=== PATIENT | male | born 1955 | race Caucasian/White ===

== ENCOUNTER 2017-02-26 08:58 | Emergency (ER) | payer MEDICARE ==
--- NOTE | 2017-02-26 11:18 | RAD ---
INDICATION: Right ankle pain. TECHNIQUE: 3 views of the right ankle were obtained. FINDINGS: The bones are in normal alignment. No fracture is seen. Joint spaces appear maintained. There are prominent vascular calcifications present. IMPRESSION: NO EVIDENCE FOR FRACTURE.
[2017-02-26 11:23] LABS: Albumin 3.6 g/dL (3.2-5.2); BUN/Creatinine Ratio 14.3 (8-20); C Reactive Protein 8.19 mg/L (< 5.00); Calcium 9.1 mg/dL (8.6-10.3); EGFR African American 38.9 (>60); EGFR Non-African American 30.2 (>60); Globulin 4.1 g/dL (2-4); Total Bilirubin 0.3 mg/dL (0.2-1.0); Total Protein 7.7 g/dL (6.4-8.9); Uric Acid 6.3 mg/dL (4.4-7.6)
--- NOTE | 2017-02-26 11:51 | RAD ---
INDICATION: Pain and swelling. Right leg pain COMPARISON: None TECHNIQUE: Duplex interrogation of the Lowerextremity was performed. FINDINGS: Deep veins: The common femoral, great saphenous, profunda femoris, proximal, mid, and distal deep femoral, popliteal, posterior tibial, and peroneal veins are patent. There is normal compressibility, augmentation, and phasic flow. Superficial veins: There are no findings of superficial thrombophlebitis. Popliteal fossa:There is no evidence of a popliteal cyst. Soft tissues:There are no soft tissue abnormalities. IMPRESSION: Normal examination. No evidence of deep venous thrombosis
[2017-02-26 12:10] LABS: Hematocrit 39 % (42-52); Hemoglobin 12.9 g/dl (14.0-18.0); Mean Corpuscular HGB Conc 33 g/dl (31-36); Mean Corpuscular Hemoglobin 34 pg (27-31); Mean Corpuscular Volume 103 fL (80-94); Mean Platelet Volume 9 um3 (7.4-10.4); Red Blood Count 3.81 10^6/ul (4.0-5.4); Red Cell Distribution Width 13 % (10.5-15); White Blood Count 4.1 10^3/ul (3.5-10.8)
[2017-02-26 12:46] LABS: Potassium 5.2 mmol/L (3.5-5.0)
--- NOTE | 2017-02-26 13:46 | ED ---
Jacobo Davis Angela, scribed for Pravin Wallis MD on 02/26/17 at 1046 . Lower Extremity - HPI Summary HPI Summary: This pt is a 61 y/o male, with recent kidney transplant and BK virus, presenting to [facility] c/o RLE pain x2 days. Pt reports that he had a headache 3 days ago, but 2 days ago he developed right thigh pain. He states he took Tylenol with relief. Yesterday, pt notes he had right negron pain, took Tylenol before bed and had some relief but felt throbbing pain. He notes that this morning he woke up with right ankle pain. At its worst pt rates his pain 8/10 in severity. Pt took Tylenol this morning and had relief, currently rates his pain 0/10 in severity. Pt denies chest pain, SOB, fever, chills. PMHx includes gout. reports the pt usually has gout when he is stressed. Last time pt had gout was in August 2014. No PMHx of blood clots. Pt had a recent left kidney transplant 12 weeks ago in [facility]. Pt started IVIG infusions on Feb.16, then had infusions on Sun, Sun. and Sunday of last week, and was supposed to have his 5th one today. He [facility] followed up by Dr. Gonzalez. 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 Used: 0-10 Numeric Timing: Lasting Days - 2 Location: Is Discrete @ - RLE Associated Signs And Symptoms: Negative: Swelling, Redness, Fever, Weakness, Dizziness, Abdominal Pain Able to Bear Weight: Yes - Allergies/Home Medications Allergies/Adverse Reactions: Allergies Allergy/AdvReac Type Severity Reaction Status Date / Time Oxycodone Allergy Severe Vomiting Verified 02/23/17 09:44 Temazepam [From Restoril] Allergy Altered Verified 02/23/17 09:44 Mental Status PMH/Surg Hx/FS Hx/Imm Hx Endocrine/Hematology History: Reports: Hx Diabetes Cardiovascular History: Reports: Hx Angina, Hx Coronary Artery Disease, Hx Hypercholesterolemia, Hx Hypertension Denies: Hx Myocardial Infarction, Hx Valvular Heart Disease Respiratory History: Denies: Hx Asthma Musculoskeletal History: Reports: Hx Gout Infectious Disease History: No Infectious Disease History: Denies: Traveled Outside the [place] in Last 30 Days - Family History Known Family History: Positive: Other - Mother: brain CA, lung CA - Social History Alcohol Use: None Substance Use Type: Reports: None Smoking Status (MU): Never Smoked Tobacco Review of Systems Negative: Fever, Chills Negative: Chest Pain Negative: Shortness Of Breath Musculoskeletal: Other - RLE pain, right ankle pain Positive: Headache All Other Systems Reviewed And Are Negative: Yes Physical Exam - Summary Physical Exam Summary: General: well-appearing, no pain distress Skin: warm, color reflects adequate perfusion, dry Head: normal Eyes: EOMI, JOZEF ENT: normal Neck: supple, nontender Respiratory: CTA, breath sounds present Cardiovascular: RRR Abdomen: soft, nontender Bowel: present Musculoskeletal: normal, strength/ROM intact Neurological: normal, sensory/motor intact, A&O x3 Psychological: affect/mood appropriate Triage Information Reviewed: Yes Vital Signs On Initial Exam: Initial Vitals Temp Pulse Resp BP Pulse Ox 98.4 F 87 18 141/82 98 02/26/17 09:27 02/26/17 09:27 02/26/17 09:27 02/26/17 09:27 02/26/17 09:27 Vital Signs Reviewed: Yes - [place] Coma Scale Coma Scale Total: 15 Diagnostics - Vital Signs Vital Signs Temp Pulse Resp BP Pulse Ox 02/26/17 10:00 69 17 127/69 99 02/26/17 09:43 71 17 98 02/26/17 09:41 157/67 02/26/17 09:27 98.4 F 87 18 141/82 98 - Laboratory Lab Results: Lab Results 02/26/17 02/26/17 Range/Units 10:56 11:47 WBC 4.1 (3.5-10.8) 10^3/ul RBC 3.81 L (4.0-5.4) 10^6/ul Hgb 12.9 L (14.0-18.0) g/dl Hct 39 L (42-52) % MCV 103 H (80-94) fL MCH 34 H (27-31) pg MCHC 33 (31-36) g/dl RDW 13 (10.5-15) % Plt Count 105 L (150-450) 10^3/ul MPV 9 (7.4-10.4) um3 Neut % (Auto) 77.2 (38-83) % Lymph % (Auto) 13.3 L (25-47) % [place] % (Auto) 7.2 (1-9) % Eos % (Auto) 0.5 (0-6) % Baso % (Auto) 1.8 (0-2) % Absolute Neuts (auto) 3.2 (1.5-7.7) 10^3/ul Absolute Lymphs (auto) 0.5 L (1.0-4.8) 10^3/ul Absolute Monos (auto) 0.3 (0-0.8) 10^3/ul Absolute Eos (auto) 0 (0-0.6) 10^3/ul Absolute Basos (auto) 0.1 (0-0.2) 10^3/ul Absolute Nucleated RBC 0 10^3/ul Nucleated RBC % 0.1 Sodium 132 L (133-145) mmol/L Potassium 5.2 H (3.5-5.0) mmol/L Chloride 108 (101-111) mmol/L Carbon Dioxide 16 L (22-32) mmol/L Anion Gap 8 (2-11) mmol/L BUN 32 H (6-24) mg/dL Creatinine 2.23 H (0.67-1.17) mg/dL Est GFR ( Amer) 38.9 (>60) Est GFR (Non-Af Amer) 30.2 (>60) BUN/Creatinine Ratio 14.3 (8-20) Glucose 226 H (70-100) mg/dL Uric Acid 6.3 (4.4-7.6) mg/dL Calcium 9.1 (8.6-10.3) mg/dL Total Bilirubin 0.30 (0.2-1.0) mg/dL AST 54 H (13-39) U/L ALT 38 (7-52) U/L Alkaline Phosphatase 55 (34-104) U/L C-Reactive Protein 8.19 H (< 5.00) mg/L Total Protein 7.7 (6.4-8.9) g/dL Albumin 3.6 (3.2-5.2) g/dL Globulin 4.1 H (2-4) g/dL Albumin/Globulin Ratio 0.9 L (1-3) Result Diagrams: 02/26/17 11:47 02/26/17 10:56 Lab Statement: Any lab studies that have been ordered have been reviewed, and results considered in the medical decision making process. - Radiology Right ankle XR Xray Interpretation: No Acute Changes - IMPRESSION: No evidence for fracture. Dr. Wallis has reviewed this radiology report. Radiology Interpretation Completed By: Radiologist - EKG 1337 Cardiac Rate: NL EKG Rhythm: Sinus Rhythm - at [address] Segment: Normal Ectopy: None EKG Interpretation: LVH. - Additional Comments Diagnostic Additional Comments: Venous Doppler Study, Right, as read by radiologist: IMPRESSION: Normal examination. No evidence of deep venous thrombosis. Dr. Wallis has reviewed this radiology report. Re-Evaluation - Re-Evaluation First Eval Re-Evaluation Time: 13:31 Comment: I reviewed the XR and Venous Doppler Study results with the pt and . Lower Extremity Course/Dx - Course Course Of Treatment: Medications reviewed. Allergies noted. Right ankle XR shows no evidence for fracture. Right venous doppler study shows normal examination. No evidence of deep venous thrombosis. DISCUSSED RESULTS WITH PATIENT AND HIS . NO DVT SEEN. NL URIC ACID. NO EKG CHANGES. NO PAIN IN ED. - Diagnoses Provider Diagnoses: Right leg pain, Hyperkalemia, Renal insufficiency Discharge - Discharge Plan Condition: Stable Disposition: HOME Patient Education Materials: Leg Pain (ED), Hyperkalemia (ED), Chronic Kidney Disease (ED) Referrals: Yane Gonzalez MD [Primary Care Provider] - Additional Instructions: FOLLOW UP WITH YOUR DOCTOR. RETURN TO THE EMERGENCY DEPARTMENT FOR ANY WORSENING OF YOUR CONDITION OR QUESTIONS OR CONCERNS. The documentation as recorded by the Jacobo garnica Angela accurately reflects the service I personally performed and the decisions made by me, Pravin Wallis MD.
[2017-02-26 13:47] VITALS: BP 139/64
== END 2017-02-26 13:48 | disposition home or self-care (01) ==
LOC: ED 08:58
DX: M79.661 Pain in right lower leg (principal); E87.5 Hyperkalemia; N28.9 Disorder of kidney and ureter, unspecified; E11.8 Type 2 diabetes mellitus with unspecified complications; I25.10 Atherosclerotic heart disease of native coronary artery without angina pectoris; E78.00 Pure hypercholesterolemia, unspecified; I10 Essential (primary) hypertension; Z88.5 Allergy status to narcotic agent
CPT/HCPCS: 36415; 80053; 84550; 85025; 86140; 93005; 99283

== ENCOUNTER 2018-10-15 03:59 | Emergency (ER) | payer MEDICARE ==
[2018-10-15] MEDS ORDERED: Morphine 4 MG/ML VIAL (1 ml) 4 MG/ML VIAL IM ONE ×2 (04:22→05:07)
[2018-10-15] MEDS ORDERED: PROCHLORPERAZINE INJ 5 MG/ML 2 ML VIAL IM ONE (04:23)
[2018-10-15] MEDS ORDERED: Cyclobenzaprine TAB* 10 MG PO ONE (04:26)
--- NOTE | 2018-10-15 04:26 | ED ---
Back Pain - HPI Summary HPI Summary: This pt is a 63 Y/O M presenting to [facility] accompanied by his with a CC of back pain that started on 10/10/18 and has gotten worse today. The pain started while he was lifting a rock while gardening. He states that the low back pain has started to migrate down his L leg and into the L side of his groin. He states that he does not have any pain with ROM while laying down but has increased pain with walking and ROM. He denies any weakness or fevers, CP, abdominal pain, N/V/D, and chills. He states that nothing movement aggravates his symptoms and rest alleviates his symptoms. He has a PMHx of a kidney transplant. - History of Current Complaint Chief Complaint: EDBackInjuryPain Stated Complaint: BACK PAIN PER PT Hx Obtained From: Patient Onset/Duration: Sudden Onset, Lasting Days - 5, Still Present, Worse Since Onset/Duration: Started Days Ago - 5, Still Present, Worse Since Timing: Constant Back Pain Location: Is Discrete @ - L lower back Severity Initially: Moderate Severity Currently: Severe Pain Intensity: 10 Pain Scale Used: 0-10 Numeric Aggravating Symptom(s): Movement Alleviating Symptom(s): Rest Associated Signs And Symptoms: Positive: Negative - weakness or fevers, CP, abdominal pain, N/V/D, and chills, Pain with Weight Bearing. Negative: Fever, Weakness, Abdominal Pain - Allergies/Home Medications Allergies/Adverse Reactions: Allergies Allergy/AdvReac Type Severity Reaction Status Date / Time oxycodone Allergy Vomiting Verified 10/15/18 04:04 temazepam [From Restoril] Allergy Altered Verified 10/15/18 04:04 Mental Status PMH/Surg Hx/FS Hx/Imm Hx Previously Healthy: Yes Endocrine/Hematology History: Reports: Hx Diabetes Cardiovascular History: Reports: Hx Angina, Hx Coronary Artery Disease, Hx Hypercholesterolemia, Hx Hypertension Denies: Hx Myocardial Infarction, Hx Valvular Heart Disease Respiratory History: Denies: Hx Asthma Musculoskeletal History: Reports: Hx Gout - Immunization History Date of Tetanus Vaccine: utd Date of Influenza Vaccine: fall 2017 Infectious Disease History: No Infectious Disease History: Denies: Traveled Outside the [place] in Last 30 Days - Family History Known Family History: Positive: Other - Mother: brain CA, lung CA - Social History Alcohol Use: None Substance Use Type: Reports: None Smoking Status (MU): Never Smoked Tobacco Review of Systems Negative: Fever, Chills Negative: Chest Pain Negative: Abdominal Pain, Vomiting, Diarrhea, Nausea Positive: Myalgia - L lower back pain Negative: Weakness All Other Systems Reviewed And Are Negative: Yes Physical Exam - Summary Physical Exam Summary: VITAL SIGNS: Reviewed. GENERAL: Patient is a well-developed and nourished female who is lying comfortable in the stretcher. Patient is not in any acute respiratory distress. HEAD AND FACE: No signs of trauma. No ecchymosis, hematomas or skull depressions. No sinus tenderness. EYES: PERRLA, EOMI x 2, No injected conjunctiva, no nystagmus. EARS: Hearing grossly intact. Ear canals and tympanic membranes are within normal limits. MOUTH: Oropharynx within normal limits. NECK: Supple, trachea is midline, no adenopathy, no JVD, no carotid bruit, no c- spine tenderness, neck with full ROM CHEST: Symmetric, no tenderness at palpation LUNGS: Clear to auscultation bilaterally. No wheezing or crackles. CVS: Regular rate and rhythm, S1 and S2 present, no murmurs or gallops appreciated. ABDOMEN: Soft, non-tender. No signs of distention. No rebound no guarding, and no masses palpated. Bowel sounds are normal. EXTREMITIES: FROM in all major joints, no edema, no cyanosis or clubbing. NEURO: Alert and oriented x 3. No acute neurological deficits. Speech is normal and follows commands. SKIN: Dry and warm MUSKULOSKELETAL: Tenderness over the L lower back, bilateral straight leg test is negative Triage Information Reviewed: Yes Vital Signs On Initial Exam: Initial Vitals Temp Pulse Resp BP Pulse Ox 98.5 F 78 20 182/99 94 10/15/18 04:01 10/15/18 04:01 10/15/18 04:01 10/15/18 04:01 10/15/18 04:01 Vital Signs Reviewed: Yes Diagnostics - Vital Signs Vital Signs Temp Pulse Resp BP Pulse Ox 10/15/18 04:01 98.5 F 78 20 182/99 94 - Laboratory Lab Statement: Any lab studies that have been ordered have been reviewed, and results considered in the medical decision making process. Back Pain Course/Dx - Course Course Of Treatment: This pt is a 63 Y/O M presenting to [facility] accompanied by his with a CC of back pain that started on 10/10/18 and has gotten worse today. He states that the low back pain has started to migrate down his L leg and into the L side of his groin. His PE found that he has Tenderness over the L lower back, bilateral straight leg test is negative. The pt will follow up with his PCP today. He will be discharged home with a Dx of a muscle strain and muscle pain. - Diagnoses Provider Diagnoses: Muscle strain, Muscle pain Discharge - Sign-Out/Discharge Documenting (check all that apply): Patient Departure - discharge Patient Received Moderate/Deep Sedation with Procedure: No - Discharge Plan Condition: Stable Disposition: HOME Patient Education Materials: Muscle Strain (ED), Lower Back Exercises (ED) Referrals: Yane Gonzalez MD [Primary Care Provider] - As Soon As Possible Additional Instructions: Please follow up with your primary care physician GORDON. Take the medications as directed and return to the emergency department for any new or worsening symptoms. - Attestation Statements Document Initiated by Shaheed: Yes Documenting Scribe: Scout Bingham Provider For Whom Shaheed is Documenting (Include Credential): Anjana Leal MD Scribe Attestation: Scout Davis, scribed for Anjana Leal MD on 10/15/18 at 0554. Status of Scribe Document: Ready
--- OUTSIDE RECORDS SUMMARY | 2018-10-15 05:16 | XMS REPORT | Continuity of Care Document ---
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 Unavailable Yane Gonzalez MD Primary Care Physician Unavailable Payers Date Identification Numbers Payment Provider Subscriber Policy Number: [id number] Medicare Nadeem Valadez PayID: [id number] [facility] [address] [facility] [place] [address] Policy Number: [id number] [facility] Option Nadeem Valadez PayID: [id number] Claims, [address] [place] [address] Expires: 2015 Policy Number: [id number] [employer] PEDRO Valadez PayID: [id number] [address] [address] [place] [address] Problems Active Problems Provider Date Type 2 diabetes mellitus Elder Longoria MD Onset: 12/03/2012 Post-inflammatory pulmonary fibrosis Elder Longoria MD Onset: 12/03/2012 End stage renal failure on dialysis Elder Longoria MD Onset: 05/31/2015 History of coronary artery bypass grafting Elder Longoria MD Onset: 2015 Drug-induced diabetes mellitus Onset: Adult health examination Onset: 06/20/2016 Screening for malignant neoplasm of colon Onset: 03/15/2018 End-stage renal disease Onset: Essential hypertension Onset: Gout Onset: Abnormal glucose level Onset: 07/23/2012 Parietoalveolar pneumopathy Onset: Transplant of kidney Onset: 03/05/2017 H/O: lung recipient Onset: 10/25/2015 Psychogenic impotence Onset: 06/20/2016 Obstructive sleep apnea syndrome Onset: History of polyp of colon Onset: 04/21/2015 Testicular hypofunction Onset: 10/17/2016 Peripheral vascular disorder due to diabetes Onset: 10/17/2016 mellitus Resolved Problems Abdominal pain Onset: 10/25/2015 Resolved: 03/04/2018 Herpes zoster without complication Onset: 12/17/2017 Resolved: 03/04/2018 Social History Type Date Description Comments Sex Unknown Tobacco Use Start: Unknown Patient has never smoked Smoking Status Reviewed: 09/23/18 Patient has never smoked Allergies, Adverse Reactions, Alerts Active Allergies Reaction Severity Comments Date Seasonal 06/01/2015 Oxycodone Hydrochloride 03/20/2018 Restoril 06/01/2015 Inactive Allergies NKDA 12/03/2012 Medications Active Medications SIG Qnty Indications Ordering Date Provider Peg 3350/Electrolytes use as directed 4000ml Kate 09/23/2018 MD Lisa 240gm Solution Rec Humalog sliding scale 1units Yane Gonzalez MD 11/01/2017 100Unit/ML Solution Lantus Solostar 18 units 1units Yane Gonzalez MD 10/31/2017 100Unit/ML Solution Pen-Inject Azelastine HCL 3units Yane Gonzalez MD 11/12/2015 (Nasal) 0.1% Solution Folic Acid 90tabs Yane Gonzalez MD 10/25/2015 1mg Tablets Tacrolimus Liquid takes 0.6 ml Unknown 0.5MG/ML daily Lantus 1units Yane Gonzalez MD 100Unit/ML Solution Metoprolol Tartrate 12.5 mg bid 180tabs Yane Gonzalez MD 25mg Tablets Bactrim Sunday And Yane Gonzalez MD 400-80mg Sunday Tablets Noxafil 2 Tabs Daily Unknown 100mg Tablets [place] Allergy 24HR one spray each Unknown nostril daily 55mcg/Act Aerosol Atorvastatin Calcium Unknown 20mg Tablets Culturelle Digestive Unknown Health Capsules Renvela Unknown 800mg Tablets Aspirin bid Unknown 81mg Tablets Montelukast Sodium Unknown 10mg Tablets Loratadine Unknown 10mg Tablets Centrum Silver 1 by mouth every Unknown Tablets day Calcium Carbonate Unknown 1250(500Ca) mg Tablets Cellcept 1 by mouth twice Unknown 250mg Tablets a day Azithromycin Sunday,Sunday Unknown 250mg And Sunday Tablets Pantoprazole Sodium Unknown 40mg Tablets Prednisone Unknown 5mg Tablets Sulfamethoxazole/Trim 1/2 Tablet Sun Unknown ethoprim DS And 800-160mg Tablets History Medications Famciclovir 14tabs Yane Gonzalez MD 12/16/2017 - 500mg Tablets 09/22/2018 Sildenafil Citrate 6tabs Yane Gonzalez MD 07/03/2017 - 50mg 09/22/2018 Tablets Colyte With Flavor by mouth as 4000ml Elder Longoria MD 06/21/2015 - Packs directed 09/22/2018 240gm Solution Rec Azithromycin 6tabs Yane Gonzalez MD 04/01/2015 - 250mg 09/22/2018 Tablets Protonix Yane Gonzalez MD - 40mg Tablets 09/22/2018 Triamcinolone Yane Gonzalez MD - Acetonide 09/22/2018 55mcg/Act Aerosol Aspirin Low Dose Yane Gonzalez MD - 81mg 09/22/2018 Tablets Noxafil Yane Gonzalez MD - 100mg Tablets 09/22/2018 Tacrolimus Yane Gonzalez MD - 0.5mg Capsules 09/22/2018 Tacrolimus take 1 tablet Unknown - 0.5mg Capsules bid 09/22/2018 Amlodipine Besylate Unknown - 5mg 09/22/2018 Tablets Vitamin D 1 Tablet Sunday Unknown - [id number] And 09/22/2018 Capsules Valcyte Unknown - 450mg Tablets 06/01/2015 Tacrolimus Unknown - 0.5mg Capsules 06/01/2015 Folic Acid Unknown - 1mg Tablets 09/22/2018 Advair Diskus Unknown - 06/01/2015 500-50mcg/Dose Aerosol Humalog Kwikpen Unknown - 06/01/2015 100Unit/ML Solution Nateglinide Unknown - 120mg Tablets 06/01/2015 Azelastine HCL Randy Monaco MD - 09/22/2018 137mcg/[place] Solution Voriconazole Unknown - 200mg 06/01/2015 Tablets Vital Signs Date Vital Result Comment 09/23/2018 2:33pm Height 71 inches 5'11" Weight 206.00 lb BP Systolic 137 mmHg BP Diastolic 96 mmHg Heart Rate 82 /min BMI (Body Mass Index) 28.7 kg/m2 06/01/2015 10:56am Height 71 inches 5'11" Weight 184.00 lb BP Systolic 136 mmHg BP Diastolic 78 mmHg Heart Rate 76 /min BMI (Body Mass Index) 25.7 kg/m2 12/03/2012 9:25am Height 71 inches 5'11" Weight 198.00 lb BP Systolic 138 mmHg BP Diastolic 86 mmHg Heart Rate 80 /min BMI (Body Mass Index) 27.6 kg/m2 Results Test Date Facility Test Result H/L Range Note Laboratory test 03/04/2018 N2N/CCD Import O2 sat 97 IND finding Laboratory test 06/23/2015 [facility] [place] SEE RESULT 1 finding Interface Order BELOW BMP W/O Egfr(!) 04/01/2015 [facility] Sodium(!) <pending> Potassium(!) <pending> Chloride Serum/Plasma(!) <pending> Carbon Dioxide Ser/Plasm(!) <pending> BUN - Urea Nitrogen(!) <pending> Calcium Ser/Plasma Mass/Vol(!) <pending> Creatinine Serum Mass/Vol(!) <pending> Glucose Serum(!) <pending> Laboratory test 04/01/2015 [facility] C-Reative Protein <pending> finding Surgical Pathology 02/10/2013 [facility] [place] DATE: <SEE NOTE> 1 SEE RESULT BELOW Name: NADEEM VALADEZ : [address]: Elder Longoria MD Acct: [id number] Unit: [id number] AGE: 59 Location: ENDO Re06/23/15 SEX: M Status: REG REF SPEC: [id number] BETTYE: 06/23/15-12[address] [facility] [address]: Eledr Longoria MD REQ: [id number] RECD: 06/23/15-1419 STATUS: MARTHA BAXTER DR: Yane Gonzalez MD _ ORDERED: LEVEL IV/2 FINAL DIAGNOSIS 1. Colon, hepatic flexure, biopsy: -- Tubular adenoma. -- No high grade dysplasia or malignancy. 2. Colon, descending, biopsy: -- Tubular adenoma. -- No high grade dysplasia or malignancy. CLINICAL HISTORY Personal history of colon polyp POST-OPERATIVE DIAGNOSIS Colonoscopy into terminal ileum, prep good - 2 small polyps removed, mild sigmoid diverticulosis. Conclusions/Plan: 2 polyps removed GROSS DESCRIPTION 1. The specimen is received in formalin labeled, Hepatic Flexure Polyp, and consists of a 0.2 x 0.2 x 0.1 cm youngblood-pink irregular soft tissue fragment, which is submitted entirely in one cassette. 2. The specimen is received in formalin labeled, Descending Colon Polyp, and consists of a 0.2 x 0.2 x 0.1 cm youngblood-pink irregular soft tissue fragment, which is submitted entirely in one cassette. Signed (signature on file) Evelio Abebe MD [id number] END OF REPORT * ML=Testing performed at Main Lab DEPARTMENT OF PATHOLOGY, [address] [place] [address] Evelio Abebe M.D. Director [facility] # [id number] Procedures Date Code Description Status 06/23/2015 27338 Colonoscopy W/ Snare RM Of Polyp/Tumor/Lesion Completed 02/10/2013 05458 Colonscopy+Biopsy Completed Encounters Type Date Location Provider Dx Diagnosis Office Visit 06/01/2015 [facility] Elder Weber K62.89 Other specified 11:00a [facility] MD diseases of anus and rectum Z86.010 Personal history of colonic polyps Office Visit 12/03/2012 9:15a [facility] V12.72 History [facility] MD Personal Colonic Polyps 250.00 Diabetes Mellitus W/O Compl Type II Or Unspec Controlled 515 Pulmonary Fibrosis Postinflammatory Plan of Treatment Future Appointment(s):10/23/2018 8:00 am - Kate Gonzalez MD at [facility]09/23/2018 - Kate Gonzalez MDZ86.010 Personal history of colonic dqhjerX20.5 Hemorrhage of anus and eclixmE50.2 Lung transplant jgoidyA09.0 Kidney transplant status
[2018-10-15 06:06] VITALS: BP 155/83
== END 2018-10-15 06:05 | disposition home or self-care (01) ==
LOC: ED 03:59
DX: S39.012A Strain of muscle, fascia and tendon of lower back, initial encounter (principal); X50.0XXA Overexertion from strenuous movement or load, initial encounter; Y93.H2 Activity, gardening and landscaping; Y92.096 Garden or yard of other non-institutional residence as the place of occurrence of the external cause; M79.18 Myalgia, other site; E11.9 Type 2 diabetes mellitus without complications; I25.119 Atherosclerotic heart disease of native coronary artery with unspecified angina pectoris; I10 Essential (primary) hypertension; Z94.0 Kidney transplant status; Z88.5 Allergy status to narcotic agent; Z88.8 Allergy status to other drugs, medicaments and biological substances
CPT/HCPCS: 96372; 99283; A9270-GY; J0780; J2270

== ENCOUNTER 2018-10-15 15:52 | Emergency (ER) | payer MEDICARE ==
[2018-10-15 17:53] VITALS: BP 166/92
== END 2018-10-15 19:15 | disposition left against medical advice (07) ==
LOC: ED 15:52
DX: M54.9 Dorsalgia, unspecified (principal); M79.606 Pain in leg, unspecified; Z53.21 Procedure and treatment not carried out due to patient leaving prior to being seen by health care provider

== ENCOUNTER 2019-01-13 17:34 | Emergency (ER) | payer MEDICARE ==
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
[2019-01-13] MEDS ORDERED: oxyCODONE/Acetamin 5/325 MG* TAB PO ONE (18:00)
[2019-01-13] MEDS ORDERED: Ondansetron ODT TAB* 4 MG SL ONE (18:00)
[2019-01-13 20:10] LABS: Urine Appearance Clear; Urine Bacteria Absent (Absent); Urine Bilirubin Negative (Negative); Urine Blood Negative (Negative); Urine Color Yellow; Urine Glucose 2+(150 mg/dL) (Negative); Urine Ketones Negative (Negative); Urine Nitrite Negative (Negative); Urine Protein 1+(30 mg/dL) (Negative); Urine Red Blood Cell Absent (Absent); Urine Specific Gravity 1.013 (1.010-1.030); Urine Urobilinogen Negative (Negative); Urine White Blood Cell Absent (Absent)
[2019-01-13 20:35] VITALS: BP 154/80
== END 2019-01-13 20:34 | disposition home or self-care (01) ==
LOC: ED 17:34
DX: M54.5 Low back pain (principal); V43.52XA Car driver injured in collision with other type car in traffic accident, initial encounter; Y92.410 Unspecified street and highway as the place of occurrence of the external cause; E11.9 Type 2 diabetes mellitus without complications; I25.10 Atherosclerotic heart disease of native coronary artery without angina pectoris; E78.00 Pure hypercholesterolemia, unspecified; I10 Essential (primary) hypertension; Z94.2 Lung transplant status; Z94.0 Kidney transplant status; Z88.5 Allergy status to narcotic agent; Z88.8 Allergy status to other drugs, medicaments and biological substances
CPT/HCPCS: 70450; 71250; 72125; 74176; 81003; 81015; 99283; A9270-GY